=== PATIENT | male | born 1955 | race Caucasian/White ===

== ENCOUNTER 2020-12-08 14:35 | Emergency (ER) | payer BC, MEDICARE ==
[~2020-12-08] VITALS: Ht 180.3 cm; Wt 95.8 kg
[~2020-12-08 14:35] MED LIST: AMLO5TAB4 PO; APIX5TAB PO; CYCL50CA5 PO; FEBU40TA PO; FURO40TA6 PO; METO50TA82 PO; PIOG30TA23 PO; PRAV20TA2 PO; PRED5TAB PO; RIVA15TA PO
--- NOTE | 2020-12-08 15:39 | NUR ---
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
[2020-12-08] MEDS ORDERED: HYDROcodone/APAP 5/325 TABLET PO ONE (16:30)
[2020-12-08 16:33] LABS: ALANINE AMINOTRANSFERASE 26 U/L (12-78); ALBUMIN 3.1 g/dL (3.4-5.0); ANION GAP 9 mmol/L (5-15); CALCIUM 8.8 mg/dL (8.5-10.1); CHLORIDE 90 mmol/L (98-107)
[2020-12-08 16:34] LABS: BASOPHILS % (AUTO) 1 % (0-1); EOSINOPHILS % (AUTO) 1 % (1-7); LYMPHOCYTES % (AUTO) 20 % (22-44); MEAN CORPUSCULAR HEMOGLOBIN 33.8 pg (27.5-34.5); MEAN CORPUSCULAR HGB CONC 34.4 g/dL (33.2-36.2); MEAN PLATELET VOLUME 7.2 fL (7.4-10.4); MONOCYTES % (AUTO) 5 % (2-9); NEUTROPHILS % (AUTO) 73 % (42-75); PLATELET COUNT 115 x10^3/uL (130-400); RED BLOOD COUNT 3.55 x10^6/uL (4.38-5.82); RED CELL DISTRIBUTION WIDTH 14.5 % (9.4-14.8)
[2020-12-08 16:36] LABS: ALKALINE PHOSPHATASE 180 U/L (45-117); BILIRUBIN,TOTAL 0.6 mg/dL (0.2-1.0); TOTAL PROTEIN 6.1 g/dL (6.4-8.2)
[2020-12-08] MEDS ORDERED: HYDROcodone/APAP 5/325 TABLET ONE (16:41)
[2020-12-08] MEDS ORDERED: VANCOMYCIN 2,000 MG in SODIUM CHLORIDE 0.9% 500 ML IV ONE (18:00)
[2020-12-08] MEDS ORDERED: VANCOMYCIN PER PHARMACY MC PRN (18:00)
--- NOTE | 2020-12-08 19:03 | NUR ---
RECEIVED REPORT FROM CAMERON NIEVES. PT RESTING COMFORTABLY ON GURNEY, DENIES NEEDS AT THIS TIME
[2020-12-08 20:01] VITALS: BP 107/72
--- NOTE | 2020-12-08 20:03 | NUR ---
PT RESTING COMFORTABLY ON GURNEY, DENIES NEEDS AT THIS TIME
--- NOTE | 2020-12-08 20:38 | NUR ---
Patient given discharge instructions and they have confirmed that they understand the instructions. Patient ambulatory with steady gait.
== END 2020-12-08 20:54 | disposition home or self-care (01) ==
LOC: ED 16:00
DX: R10.33 Periumbilical pain (principal); L03.311 Cellulitis of abdominal wall; I10 Essential (primary) hypertension; E11.9 Type 2 diabetes mellitus without complications; I48.91 Unspecified atrial fibrillation
CPT/HCPCS: 36415; 74176; 80053; 83690; 85025; 87040; 96365; 96366; 99284; J3370; J7040

== ENCOUNTER 2021-01-03 17:58 | Emergency (ER) | payer BC, MEDICARE ==
[~2021-01-03] VITALS: Ht 180.3 cm; Wt 91.6 kg
--- NOTE | 2021-01-03 18:12 | NUR ---
PT CHANGED INTO GOWN, UPRIGHT ON GURNEY WITH MONITORS IN PLACE, RESPONDS APPROP TO STAFF, NAD, COMFORT MEASURES PROVIDED, AT BS, CALL LIGHT WITHIN REACH.
--- NOTE | 2021-01-03 18:56 | NUR ---
REPORT GIVEN TO MIR BARNES
--- NOTE | 2021-01-03 18:56 | NUR ---
Report from Liliana BARNES
[2021-01-03] MEDS ORDERED: MAALOX/HYOSCYAMINE/LIDOCAINE 45 ML BTL ONE (19:18)
[2021-01-03] MEDS ORDERED: SODIUM CHLORIDE 0.9% 1,000ML IVBOLUS ONE (19:30)
[2021-01-03] MEDS ORDERED: SODIUM CHLORIDE FLUSH 10ML SYR IVF ONE (19:30)
[2021-01-03] MEDS ORDERED: MAALOX/HYOSCYAMINE/LIDOCAINE 45 ML BTL PO ONE (19:30)
[2021-01-03 19:50] LABS: BASOPHILS % (AUTO) 1 % (0-1); EOSINOPHILS % (AUTO) 2 % (1-7); LYMPHOCYTES % (AUTO) 19 % (22-44); MEAN CORPUSCULAR HEMOGLOBIN 33.6 pg (27.5-34.5); MEAN CORPUSCULAR HGB CONC 34.6 g/dL (33.2-36.2); MEAN PLATELET VOLUME 7.2 fL (7.4-10.4); MONOCYTES % (AUTO) 7 % (2-9); NEUTROPHILS % (AUTO) 71 % (42-75); PLATELET COUNT 120 x10^3/uL (130-400); RED BLOOD COUNT 3.87 x10^6/uL (4.38-5.82); RED CELL DISTRIBUTION WIDTH 14.3 % (9.4-14.8)
[2021-01-03 19:56] LABS: ALBUMIN 3.1 g/dL (3.4-5.0); ANION GAP 14 mmol/L (5-15); CALCIUM 9.5 mg/dL (8.5-10.1); CHLORIDE 89 mmol/L (98-107)
[2021-01-03 20:00] LABS: ALANINE AMINOTRANSFERASE 34 U/L (12-78); ALKALINE PHOSPHATASE 198 U/L (45-117); BILIRUBIN,TOTAL 0.8 mg/dL (0.2-1.0); TOTAL PROTEIN 6.5 g/dL (6.4-8.2)
[2021-01-03 21:05] VITALS: BP 115/70
== END 2021-01-03 21:53 | disposition home or self-care (01) ==
LOC: ED 21:30
DX: R55 Syncope and collapse (principal); I10 Essential (primary) hypertension; E11.9 Type 2 diabetes mellitus without complications; I48.91 Unspecified atrial fibrillation
CPT/HCPCS: 36415; 80053; 82042; 83605; 83615; 84145; 85025; 87040; 87070; 87205; 89051; 93005; 96360; 96361; 99284; J7030

== ENCOUNTER → 2021-02-26 | Outpatient (CLI) | payer MEDICARE, BC ==
[~2021-02-26] MED LIST changes: +CYCL50CA PO; -CYCL50CA5 PO
== END | disposition home or self-care (01) ==
LOC: RAD 14:36
PROVIDERS: ATTEND Physician Assistant
DX: Z01.818 Encounter for other preprocedural examination (principal); J98.4 Other disorders of lung
CPT/HCPCS: 71046